=== PATIENT | male | born 2000 | race Caucasian/White ===

== ENCOUNTER 2024-12-28 11:49 | Outpatient (RCR) | payer BC, SELFPAY | END 2024-12-28 23:59 | disposition home or self-care (01) | LOC: RPT 11:49 | PROVIDERS: ATTENDING PHYSICIAN Family Medicine; FAMILY PHYSICIAN Family Medicine | DX: M25.561 Pain in right knee (principal); Z73.6 Limitation of activities due to disability; R25.2 Cramp and spasm; M62.81 Muscle weakness (generalized) | CPT/HCPCS: 97110; 97161; 97530 ==

== ENCOUNTER 2025-01-27 18:07 | Outpatient (RCR) | payer BC, SELFPAY | END 2025-01-27 23:59 | disposition home or self-care (01) | LOC: RPT 18:07 | PROVIDERS: ATTENDING PHYSICIAN Family Medicine; FAMILY PHYSICIAN Family Medicine | DX: M25.561 Pain in right knee (principal); Z73.6 Limitation of activities due to disability; M62.81 Muscle weakness (generalized); X58.XXXD Exposure to other specified factors, subsequent encounter | CPT/HCPCS: 97110; 97112 ==

== ENCOUNTER → 2025-02-16 14:52 | Outpatient (REF) | payer BC, SELFPAY ==
[2025-02-16 16:11] LABS: ALT (SGPT) 18 U/L (0-50); AST (SGOT) 26 U/L (17-59); Albumin 5.1 g/dl (3.5-5.0); Alkaline Phosphatase 57 U/L (38-126); Blood Urea Nitrogen 20 mg/dl (9-20); Calcium 9.6 mg/dl (8.4-10.2); Carbon Dioxide 30 mmol/L (22-30); Chloride 101 mmol/L (98-107); Glucose 105 mg/dl (70-99); Potassium 3.9 mmol/L (3.5-5.1); Sodium 139 mmol/L (135-145); Total Protein 7.6 g/dl (6.3-8.2); eGFR > 60.00
== END ==
LOC: REG 14:52
PROVIDERS: ATTENDING PHYSICIAN Family Medicine
DX: R25.2 Cramp and spasm (principal); M25.569 Pain in unspecified knee
CPT/HCPCS: 36415; 73560; 80048; 80053

== ENCOUNTER 2025-02-22 18:02 | Outpatient (RCR) | payer BC, SELFPAY | END 2025-02-22 23:59 | disposition home or self-care (01) | LOC: RPT 18:02 | PROVIDERS: ATTENDING PHYSICIAN Family Medicine; FAMILY PHYSICIAN Family Medicine | DX: M25.561 Pain in right knee (principal); Z73.6 Limitation of activities due to disability; M62.81 Muscle weakness (generalized); X58.XXXD Exposure to other specified factors, subsequent encounter | CPT/HCPCS: 97110; 97112; 97530 ==

== ENCOUNTER 2025-03-22 09:33 | Outpatient (RCR) | payer BC, SELFPAY | END 2025-03-22 23:59 | disposition home or self-care (01) | LOC: RPT 09:33 | PROVIDERS: ATTENDING PHYSICIAN Family Medicine; FAMILY PHYSICIAN Family Medicine | DX: M25.561 Pain in right knee (principal); Z73.6 Limitation of activities due to disability; M62.81 Muscle weakness (generalized); X58.XXXD Exposure to other specified factors, subsequent encounter | CPT/HCPCS: 97110; 97112; 97530 ==

== ENCOUNTER 2025-04-07 18:01 | Outpatient (RCR) | payer BC, SELFPAY | END 2025-04-07 23:59 | disposition home or self-care (01) | LOC: RPT 18:01 | PROVIDERS: ATTENDING PHYSICIAN Family Medicine; FAMILY PHYSICIAN Family Medicine | DX: M25.561 Pain in right knee (principal); Z73.6 Limitation of activities due to disability; M62.81 Muscle weakness (generalized); X58.XXXD Exposure to other specified factors, subsequent encounter | CPT/HCPCS: 97110; 97530 ==

== ENCOUNTER → 2025-05-05 18:46 | Outpatient (REF) | payer BC, SELFPAY | LOC: PAVMRI 18:46 | PROVIDERS: ATTENDING PHYSICIAN Student in an Organized Health Care Education/Training Program; FAMILY PHYSICIAN Family Medicine | DX: M25.561 Pain in right knee (principal) | CPT/HCPCS: 73721 ==